=== PATIENT | male | born 1975 | race Caucasian/White ===

== ENCOUNTER 2024-05-09 12:48 | Emergency (ER) | payer BC, SELFPAY ==
--- OUTSIDE RECORDS SUMMARY | 2024-05-09 12:50 | XMS_ITS | Clinical Summary ---
Author Organization [employer] [facility] Address [place], [place] [address] Care Team Providers Care Community Aide Name Role Phone Gris Tapia MD Primary Care Provider Allergies Active Allergy Reactions Criticality Noted Date Comments Prednisone Rash 09/01/2015 Medications cyclobenzaprine (FLEXERIL) 10 mg tabletIndications:M usculoskeletal neck pain Take 1 Tablet (10 mg) by mouth at bedtime if needed for Muscle Spasm. 60 Tablet 4 3 Active fluticasone (50 mcg per actuation) nasal solution (FLONASE)Indication s:Chronic sinusitis, unspecified location Inhale 2 Sprays to both nostrils once daily. 48 mL 3 3 Active famotidine (PEPCID) 40 mg tablet Take 40 mg by mouth. half tablet twice a day 4 Active ondansetron (ZOFRAN ODT) [address] 4 mg on the tongue every 8 hours if needed. 4 Active levocetirizine (Xyzal) 5 mg tab tablet Take 1 Tablet (5 mg) by mouth once daily. 4 Active omeprazole (PRILOSEC) 40 mg Delayed-Release capsuleIndications: Chronic GERD TAKE 1 CAPSULE BY MOUTH BEFORE A MEAL 30 Capsule 4 Active montelukast (SINGULAIR) 10 mg tabletIndications:N on-seasonal allergic rhinitis due to pollen TAKE 1 TABLET BY MOUTH AT BEDTIME 30 Tablet 4 Active Active Problems Problem Noted Date Diagnosed Date Tachycardia 10/11/2016 Left hand paresthesia 09/17/2015 Overview (10/08/2015): Consult Vascular Dr Garcia Left hand ulnar distribution CT angiogram. 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 This trauma likely resulted in changes in the ulnar with embolization to his fingers and occlusion of that segment of the ulnar artery. We will initially focus on medical therapy. It does not appear to me that there are meaningful options for revascularization. We will consider referral to hand surgery for attention to sympathetic flow. I will review the images further with our vascular team as well. Numbness and tingling in left hand 09/02/2015 Unspecified sinusitis (chronic) 12/02/2011 Resolved Problems Problem Noted Date Diagnosed Date Resolved Date Acute sinusitis, unspecified 08/05/2011 12/02/2011 Encounters Date Type Department Care Team Description 04/29/2024 Refill [facility] [address] [place] [address] Gris Tapia MD Refill Request (Omeprazole, Montelukast) 03/29/2024 [facility] [address] [facility] [place] [address] Gris Tapia MD Refill Request (Omeprazole, Montelukast) 03/06/2024 [facility]ill [facility] [address] [facility] [place] [id number] Gris Tapia MD Refill Request (Cyclobenzaprine) from Last 3 Months Immunizations Name Administration Dates Next Due AMB Influenza, IIV4 PF (=>6 mos Flulaval,Fluzone Fluarix)(Flu Clinic Only) 02/24/2019,01/28/2018,01/08/2017, 01 5 Influenza, IIV3 (Age >=3 years) 05/16/2013 Influenza, IIV4 04/26/2014 Influenza, IIV4 (=>6mos) MDV 02/07/2020 Tdap 09/10/2021,07/15/2010 Family History Medical History Relation Name Comments Hypertension Father no HD Hypertension Mother Other Other no one else in family with HD. No hx of arrhythmias Heart Disease Paternal Grandfather d. [place] at age 55 Relation Name Status Comments Father Mother Other Paternal Grandfather Social History Tobacco Use Types Packs/Day Years Used Date Smoking Tobacco: Never Smokeless Tobacco: Never Tobacco Cessation:Counseling Given: Yes Alcohol Use Standard Drinks/Week Comments Yes 0 (1 standard drink = 0.6 oz pur e alcohol) every weekend PHQ-2 Answer Date Recorded PHQ-2 TOTAL SCORE 0 09/10/2021 Social Connections Answer Date Recorded Frequency of Communication with Friends and Fami ly 0 01/13/2023 Financial Resource Strain Answer Date R ecorded Difficulty of Paying Living Expenses 3 01/13/2023 Difficulty of Paying Living Expenses Not on file 01/13/2023 Food Insecurity Answer Date Recorded Worried About Running Out of Food in the Last Ye ar 1 01/13/2023 Transportation Needs Answer Date Record ed Lack of Transportation (Medical) 1 01/13/2023 Housing Stability Answer Date Recorded Unable to Pay for Housing in the Last Year 1 01/13/2023 Sex and Gender Information Value Date Recorded Sex Assigned at Male 10/08/2019 4:22 PM CDT 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3 cm (5' 9) 10/12/2021 5:03 PM CDT Body Mass Index 29.37 10/12/2021 5:03 PM CDT Plan of Treatment Upcoming Encounters Date Type Department Care Team (Late st Contact Info) Description 05/18/2024 3:30 PM CELL ROOM OPERATOR Office [facility] [address] [facility] [address] Diego [place] MD [address] [place] [address] Health Maintenance Due Date Last Done Comments HIV for age 15-65 10/08/1990 Hepatitis C screening for age 18-79 10/08/1993 Depression screening for age 12+ 09/10/2022 09/10/2021, 11/20/2018, 10/11/2016, Additional history exists BMI (ht and wt on same day) for age 18+ 10/12/2022 10/12/2021, 11/20/2018, 05/12/2017, Additional history exists COVID-19 vaccine series ( season) 2023 Influenza for age 9-49 12/18/2023 , 02/24/2019, 01/28/2018, Additional history exists Fecal testing sDNA-FIT (Cologuard) for age 45-75 02/12/2026 02/12/2023 Lipids for age 45-75 01/14/2028 01/13/2023, 09/10/2015, 05/17/2012 Tetanus booster 09/11/2031 09/10/2021, 07/15/2010 Tdap Completed 09/10/2021, 07/15/2010 Pneumococcal series for age 6-49 Aged Out No longer eligible based on patient's age to complete this topic Procedures Procedure Name Priority Date/Time Associated Diagnosis Comments SDNA-FIT EXTERNAL (COLOGUARD) Routine 02/12/2023 11:20 AM CDT Screening for colon cancer LIPID PANEL W REFLEX MEASURED LDL Routine 01/13/2023 3:42 PM CDT Lipid screening from Last 3 Months or Most Recently Relevant to Health Maintenance Results * SDNA-FIT EXTERNAL (COLOGUARD) (02/12/2023 11:20 AM CDT) NONINV COLON CA DNA+OCC BLD SCRN STL-IMP Negative Negative 02/17/2023 8:51 AM CDT [facility] (CLIA #:[id number]) Comment: NEGATIVE TEST RESULT. A negative Cologuard result indicates a low likelihood that a colorectal cancer (CRC) or advanced adenoma (adenomatous polyps with more advanced pre-malignant features) is present. The chance that a person with a negative Cologuard test has a colorectal cancer is less than 1 in 1500 (negative predictive value >99.9%) or has an advanced adenoma is less than 5.3% (negative predictive value 94.7%). These data are based on a prospective cross-sectional study of 10,000 individuals at average risk for colorectal cancer who were screened with both Cologuard and colonoscopy. (Vito Reed et al, N Engl J Med 2014;370(14):2083-9735) The normal value (reference range) for this assay is negative. COLOGUARD RE-SCREENING RECOMMENDATION: Periodic colorectal cancer screening is an important part of preventive healthcare for asymptomatic individuals at average risk for colorectal cancer. Following a negative Cologuard result, the [place] Cancer Society and U.S. Multi-Society Task Force screening guidelines recommend a Cologuard re-screening interval of 3 years. References: [place] [employer] Guideline for Colorectal Cancer Screening: https://www.cancer.org/cancer/inysn-rxdzey-zstyjc/akwrwliil-sbijzuvxr-rplvzhj/ac s-rec ommendations.html.; Francis DK, Keely CR, Godwin KendallK, Colorectal Cancer Screening: Recommendations for Physicians and Patients from the U.S. Multi-Society Task Force on Colorectal Cancer Screening , Am J Gastroenterology 2017; 112:4394-5849. TEST DESCRIPTION: Composite algorithmic analysis of stool DNA-biomarkers with hemoglobin immunoassay. Quantitative values of individual biomarkers are not reportable and are not associated with individual biomarker result reference ranges. Cologuard is intended for colorectal cancer screening of adults of either sex, 45 years or older, who are at average-risk for colorectal cancer (CRC). Cologuard has been approved for use by the U.S. FDA. The performance of Cologuard was established in a cross sectional study of average-risk adults aged 50-84. Cologuard performance in patients ages 45 to 49 years was estimated by sub-group analysis of near-age groups. Colonoscopies performed for a positive result may find as the most clinically significant lesion: colorectal cancer [4.0%], advanced adenoma (including sessile serrated polyps greater than or equal to 1cm diameter) [20%] or non- advanced adenoma [31%]; or no colorectal neoplasia [45%]. These estimates are derived from a prospective cross-sectional screening study of 10,000 individuals at average risk for colorectal cancer who were screened with both Cologuard and colonoscopy. (Vito Mota. et al, N Engl J Med 2014;370(14):6293-5591.) Cologuard may produce a false negative or false positive result (no colorectal cancer or precancerous polyp present at colonoscopy follow up). A negative Cologuard test result does not guarantee the absence of CRC or advanced adenoma (pre-cancer). The current Cologuard screening interval is every 3 years. ([place] Cancer Society and U.S. Multi-Society Task Force). Cologuard performance data in a 10,000 patient pivotal study using colonoscopy as the reference method can be accessed at the following location: www.brotips/results. Additional description of the Cologuard test process, warnings and precautions can be found at www.Geosignrd.com. Stool specimen (specimen) (Rectum) 02/12/2023 11:20 AM CDT 02/14/2023 2:39 PM CDT us Gris Tapia MD URINE Final Result [facility] (CLIA #:[id number]) [place] [address], * LIPID PANEL W REFLEX MEASURED LDL (01/13/2023 3:42 PM CDT) CHOLESTEROL,TOTAL 178 100 - 199 mg/dL 01/14/2023 1:59 PM CDT [facility] Comment: Cholesterol, Total Reference Ranges Desirable <200 mg/dL Borderline 200-239 mg/dL High >=240 mg/dL TRIGLYCERIDES 108 <150 mg/dL 01/14/2023 1:59 PM CDT [facility] HDL CHOLESTEROL 46 >40 mg/dL 1:59 PM CDT [facility] NON-HDL CHOLESTEROL 132 <145 mg/dl 01/14/2023 1:59 PM CDT [facility] CHOL/HDL RATIO 3.87 <4.50 01/14/2023 1:59 PM CDT [facility] LDL CHOLESTEROL 110 <=130 mg/dL 01/14/2023 1:59 PM CDT [facility] VLDL CHOLESTEROL 22 <=30 mg/dL 01/14/2023 1:59 PM CDT [facility] PROVIDER ORDERED STATUS RANDOM 01/14/2023 1:59 PM CDT [facility] Blood BLOOD SPECIMEN / Unknown Venipuncture / Unknown 01/13/2023 3:42 PM CDT 01/13/2023 3:42 PM CDT Gris Tapia MD CHEMISTRY Final Result [facility] [address] [place] [address], from Last 3 Months or Most Recently Relevant to Health Maintenance Insurance [facility] Advance Directives * Full Code (Latest Code Status on File) Date Activated Date Inactivated Comments 10/08/2015 6:45 AM 2015 8:32 AM Care Teams Community Aide Relationship Specialty Start Date End Date Gris Tapia MD [address] [place] [address] PCP - General Family Practice 09/28/13
[2024-05-09 12:52] VITALS: BP 151/85; PULSE 88; RESP 16; TEMP 37.3; O2SAT 98; BMI 28.8
[2024-05-09 13:54] LABS: Basophils Absolute Auto 0.01 K/uL (0.00-0.30); Basophils Percent Auto 0.2 % (0.0-3.0); Hemoglobin* 16.7 gm/dL (13.5-17.5); Lymphocytes Percent Auto 14.7 % (20-44); Mean Corpuscular HGB Conc 36 gm/dL (32-36); Mean Corpuscular Hemoglobin 30 pg (26-34); Mean Corpuscular Volume 83 fL (80-100); Neutrophils Percent Auto 78.1 % (42.0-72.0); Platelet Count* 197 K/uL (140-440); RDW Coefficient of Variation % 12.7 % (11.5-15.5); Red Blood Count 5.67 m/uL (4.30-5.90)
--- OUTSIDE RECORDS SUMMARY | 2024-05-09 13:59 | XMS_ITS | Clinical Summary ---
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 This trauma likely resulted in changes in [...] Type Department Care Team Description 04/29/2024 Refill [facility] [address] [place] [address] Gris Tapia MD Refill Request (Omeprazole, Montelukast) 03/29/2024 Refill [facility] [address] [facility] [place] [address] Gris Tapia MD Refill Request (Omeprazole, Montelukast) 03/06/2024 Refill [facility] [address] [facility] [place] [address] Gris Tapia MD Refill Request (Cyclobenzaprine) from [...] of arrhythmias Heart Disease Paternal Grandfather d. 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 A negative Cologuard [...] Reed et al, N Engl J Med 2014;370(14):7552-8616) The normal value (reference range) for this assay is negative. COLOGUARD RE-SCREENING RECOMMENDATION: Periodic colorectal cancer screening is an important part of preventive healthcare for asymptomatic individuals at average risk for colorectal cancer. Following a negative Cologuard result, the [place] [employer] and U.S. Multi-Society Task Force screening guidelines recommend a Cologuard re-screening interval of 3 years. References: [place] [employer] Guideline for Colorectal Cancer Screening: https://www.cancer.org/cancer/oawlf-grkyrv-bgxgly/huxsnpnml-jrzdlbilk-vaqjalk/ac s-rec ommendations.html.; Francis DK, Keely CR, Godwin KendallK, Colorectal Cancer Screening: Recommendations for Physicians and Patients from the U.S. Multi-Society Task Force on Colorectal Cancer Screening , Am J Gastroenterology 2017; 112:4090-3271. TEST DESCRIPTION: Composite algorithmic analysis of stool [...] Mota. et al, N Engl J Med 2014;370(14):0795-8458.) Cologuard may produce a false negative or false positive result (no colorectal cancer or precancerous polyp present at colonoscopy follow up). A negative Cologuard test result does not guarantee the absence of CRC or advanced adenoma (pre-cancer). The current Cologuard screening interval is every 3 years. ([place] [employer] and U.S. Multi-Society Task Force). Cologuard performance data in a 10,000 patient pivotal study using colonoscopy as the reference method can be accessed at the following location: www.Newstag/results. Additional description of the Cologuard test process, warnings and precautions can be found at www.MobileApps.comrd.com. Stool specimen (specimen) (Rectum) 02/12/2023 11:20 AM CDT 02/14/2023 2:39 PM CDT us Gris Tapia MD URINE Final Result [facility] (CLIA #:[id number]) [place] [address], * LIPID PANEL W REFLEX MEASURED LDL (01/13/2023 3:42 PM CDT) CHOLESTEROL,TOTAL 178 100 - 199 mg/dL 01/14/2023 1:59 PM CDT [facility] Comment: Cholesterol, Total Reference Ranges Desirable <200 mg/dL Borderline 200-239 mg/dL High >=240 mg/dL TRIGLYCERIDES 108 <150 mg/dL 01/14/2023 1:59 PM CDT [facility] HDL CHOLESTEROL 46 >40 mg/dL 1:59 PM CDT [facility] NON-HDL CHOLESTEROL 132 <145 mg/dl 01/14/2023 1:59 PM CDT [facility] CHOL/HDL RATIO 3.87 <4.50 01/14/2023 1:59 PM CDT [facility] LDL CHOLESTEROL 110 <=130 mg/dL 01/14/2023 1:59 PM CDT [facility] VLDL CHOLESTEROL 22 <=30 mg/dL 01/14/2023 1:59 PM CDT [facility] PROVIDER ORDERED STATUS RANDOM 01/14/2023 1:59 PM CDT [facility] Blood BLOOD SPECIMEN / Unknown Venipuncture / Unknown 01/13/2023 3:42 PM CDT 01/13/2023 3:42 PM CDT Gris Tapia MD CHEMISTRY Final Result [facility] [address] [place] [address], from Last 3 Months or Most Recently Relevant to Health Maintenance Insurance [facility] Advance Directives * Full Code (Latest Code Status on File) Date Activated Date Inactivated Comments 10/08/2015 6:45 AM 2015 8:32 AM Care Teams Carrier Packer Relationship Specialty Start Date End Date Gris Tapia MD [address] [place] [address] PCP - General Family Practice 09/28/13
[2024-05-09 14:01] LABS: Chloride* 106 mmol/L (96-114)
[2024-05-09 14:02] LABS: Potassium* 3.7 mmol/L (3.6-5.1); Sodium* 139 mmol/L (135-149)
--- NOTE | 2024-05-09 14:02 | ED_ITS ---
HPI - General Adult General Chief complaint: Unspecified Complaint, Adult Stated complaint: Shoulder/chest pain Time Seen by Provider: 05/09/24 13:04 History of Present Illness HPI narrative: This 48-year-old male comes in reporting bilateral shoulder pain that he has had for many years. He feels that this pain is radiated down into his chest. He states that he was holding his arm out to his left side and developed some discomfort in his shoulder and radiating into his chest as result. He denies having any nausea, vomiting, shortness of breath, or diaphoresis. He states that he adjusted is position and his symptoms resolved. He does not report any exercise intolerance. 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 He also reports some occasions of right upper quadrant abdominal pain. Related Data Home Medications ?Medication ?Instructions ?Recorded ?Confirmed montelukast 10 mg tablet 10 mg PO DAILY 01/07/24 05/09/24 omeprazole 40 mg capsule,delayed 40 mg PO DAILY 01/07/24 05/09/24 release fluticasone propionate [Allergy intranasal 05/09/24 05/09/24 Relief (fluticasone)] Previous Rx's ?Medication ?Instructions ?Recorded cyclobenzaprine 10 mg tablet 10 mg PO TID #15 tabs 05/09/24 ketorolac 10 mg tablet 10 mg PO Q8H 5 days #15 tabs 05/09/24 methylprednisolone 4 mg tablets in See Rx Instructions PO .COMPLEX 05/09/24 a dose pack (Medrol (Sebas)) #21 ea montelukast 10 mg tablet 10 mg PO DAILY #30 tabs 05/09/24 (Singulair) Allergies Allergy/AdvReac Type Severity Reaction Status Date / Time prednisone Allergy Severe Verified 01/07/24 12:55 Review of Systems Status of ROS: Reports: 10 or more systems reviewed and unremarkable except as noted in History and below Narrative: Constitutional: No fevers, no weight gain or loss. Eyes: No discharge. No vision changes. HENT: No congestion, no sore throat, no ear pain. Cardiovascular: No palpitations. Respiratory: No shortness of breath, no wheezes, no cough. Gastrointestinal: No vomiting, no diarrhea. Occasions of right upper quadrant abdominal pain. Genitourinary: No dysuria, no hematuria. Musculoskeletal: Normal range of motion. Skin: No rashes, no pruritis. Neurological: No dizziness, weakness, sensory change, speech change. Spurling's test is negative. Endo/Heme/Allergies: No bruising or bleeding. No polydipsia. Pysch: no suicidality, no anxiety, no insomnia. All other systems reviewed and are negative. 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 works ~18+ hours daily Exam Narrative: Exam Narrative: Constitutional: Well-developed, well-nourished, no acute distress. HEENT: Normocephalic, atraumatic. Neck: Normal range of motion. Nontender. Supple. Heart: Regular. No murmurs. Normal rate. Intact distal pulses. Lungs: Clear to auscultation. No wheezes, rhonchi, or rales. Abdomen: Normal bowel sounds. Nontender. No rebound tenderness. Genitalia: Deferred. Back: No midline tenderness. Normal range of motion. Extremities: Normal range of motion. No injury. Skin: Intact. No rash. Warm. No erythema or pallor. Neurologic: No altered sensation. No weakness. Alert and oriented. Psychiatric: No suicidality. No anxiety or depression. No insomnia. Nursing notes and vitals signs are reviewed. Const: Vital Signs, click to edit/add: Vital Signs - 24 hr 05/09/24 12:52 Temperature 99.2 F Pulse Rate [Pulse Oximeter] 88 Respiratory Rate 16 Blood Pressure [Ri ght Upper Arm] 151/85 H Pulse Oximetry 98 Course Vital Signs Vital signs: Initial Vital Signs Temperature 99.2 F 05/09/24 12:52 Temperature Source Temporal Artery Scan 05/09/24 12:52 Pulse Rate 88 05/09/24 12:52 Pulse Rhythm Regular 05/09/24 12:52 Respiratory Rate 16 05/09/24 12:52 Blood Pressure 151/85 H 05/09/24 12:52 Blood Pressure Mean 107 H 05/09/24 12:52 Blood Pressure Position Sitting 05/09/24 12:52 Pulse Oximetry 98 05/09/24 12:52 Vital Signs Temperature 99.2 F 05/09/24 12:52 Pulse Rate 88 05/09/24 12:52 Respiratory Rate 16 05/09/24 12:52 Blood Pressure 151/85 H 05/09/24 12:52 Pulse Oximetry 98 05/09/24 12:52 Temperature 99.2 F 05/09/24 12:52 Pulse Rate 88 05/09/24 12:52 Respiratory Rate 16 05/09/24 12:52 Blood Pressure 151/85 H 05/09/24 12:52 Pulse Oximetry 98 05/09/24 12:52 Medical Decision Making MDM Narrative Medical decision making narrative: This patient comes in report of musculoskeletal symptoms and occasions of right upper quadrant abdominal pain. His shoulder pain sometimes radiates into his chest. An EKG is it pain and shows normal sinus rhythm. Labs are acquired also and his troponin returns at 0 and other lab results are also reassuring. Additionally ultrasound of his right upper quadrant done by me shows no evidence of biliary disease. Patient is okay to be discharged home. His symptoms seem to be more musculoskeletal. I did provide prescriptions for Medrol Dosepak, Flexeril, Toradol, and a refill of his Singulair. Lab Data Labs: Lab Results 05/09/24 05/09/24 Range/Units 13:27 13:39 WBC 5.30 (4.50-11.00) K/uL RBC 5.67 (4.30-5.90) m/uL Hgb 16.7 (13.5-17.5) gm/dL Hct 47.0 (37.0-53.0) % MCV 83 (80-100) fL MCH 30 (26-34) pg MCHC 36 (32-36) gm/dL RDW Coeff of Panchito 12.7 (11.5-15.5) % Plt Count 197 (140-440) K/uL Neut % (Auto) 78.1 H (42.0-72.0) % Lymph % (Auto) 14.7 L (20-44) % [place] % (Auto) 7.0 (0.0-11.0) % Eos % (Auto) 0.0 (0.0-7.0) % Baso % (Auto) 0.2 (0.0-3.0) % Neut # (Auto) 4.10 (1.7-7.0) K/uL Lymph # (Auto) 0.80 L (0.90-2.90) K/uL [place] # (Auto) 0.40 (0.00-0.90) K/UL Eos # (Auto) 0.00 (0.00-0.50) K/uL Baso # (Auto) 0.01 (0.00-0.30) K/uL Abs Immat Gran (auto) 0.00 (0.00-0.30) K/uL Imm/Tot Granulo (auto) 0.0 % Sodium 139 (135-149) mmol/L Potassium 3.7 (3.6-5.1) mmol/L Chloride 106 (96-114) mmol/L Carbon Dioxide 23 (20-32) mmol/L Anion Gap 10 (7-15) mEq/L BUN 17 (5-24) mg/dL Creatinine 0.9 (0.5-1.5) mg/dL Estimated Creat Clear 100.38 Estimated GFR 105 ml/min Glucose 132 H (60-115) mg/dL Calcium 9.6 (8.4-10.6) mg/dL POC Troponin I 0.00 L (0.01-0.04) ng/ml ECG Data Attestation: I personally reviewed and interpreted this ECG as follows: Interpretation: Normal sinus rhythm. Rate is 100 beats per minute. There are no ST or T-wave abnormalities. Discharge Plan Discharge Clinical Impression: Acute chest wall pain Patient Disposition: Home, Self-Care Condition: Stable Additional Instructions: Take medication as needed and directed. Follow up with MD or return if worsening. Prescriptions: New cyclobenzaprine 10 mg tablet 10 mg PO TID Qty: 15 0RF ketorolac 10 mg tablet 10 mg PO Q8H 5 Days Qty: 15 0RF methylprednisolone [Medrol (Sebas)] 4 mg tablets,dose pack See Rx Instructions .ROUTE .COMPLEX Qty: 21 0RF Rx Instructions: orally per package directions montelukast [Singulair] 10 mg tablet 10 mg PO DAILY Qty: 30 0RF No Action fluticasone propionate [Allergy Relief (fluticasone)] intranasal omeprazole 40 mg capsule,delayed release(DR/EC) 40 mg PO DAILY montelukast 10 mg tablet 10 mg PO DAILY Follow Up/Referrals: Provider,Not a Local [Primary Care Provider] - Stand Alone Forms: [facility] Info Instructions Procedures Ultrasound Biliary exam #1: Anatomical areas examined: gallbladder, long and short axis Indications: RUQ/epigastric pain Exam type: limited abdominal ultrasound; RUQ Impression: normal exam Description/Findings: Negative exam of gallbladder.
[2024-05-09 14:03] LABS: Slide Review Reflex No
[2024-05-09 14:04] LABS: Creatinine* 0.9 mg/dL (0.5-1.5); Est. Creatinine Clearance* 100.38; Estimated Glomerular Filt Rate 105 ml/min
[2024-05-09 14:05] LABS: Anion Gap 10 mEq/L (7-15); Blood Urea Nitrogen* 17 mg/dL (5-24); Calcium* 9.6 mg/dL (8.4-10.6); Carbon Dioxide* 23 mmol/L (20-32); Glucose* 132 mg/dL (60-115)
== END 2024-05-09 14:41 | disposition home or self-care (01) ==
PROVIDERS: Emergency Provider Emergency Medicine Emergency Medical Services
DX: R07.89 Other chest pain (principal)
CPT/HCPCS: 36415; 76705; 80048; 84484; 85025; 99284